=== PATIENT | female | born 1955 | race Caucasian/White ===

== ENCOUNTER → 2019-12-07 15:24 | Outpatient (CLI) | payer BC, SELFPAY ==
--- NOTE | ~2019-12-07 | MR_ITS ---
EXAMINATION: MR brain/brain stem wo/w con DATE: 12/07/2019 16:52 INDICATION: Tinnitus. Dysphagia. Decreased smell. TECHNIQUE: Magnetic resonance imaging (MRI) of the brain and brainstem was performed without and with 19 mL MultiHance intravenous contrast. Sequences included sagittal and axial T1-weighted FSE, axial diffusion-weighted FS EPI, axial T2*-weighted GRE, axial T2-weighted FLAIR Propeller, and axial T2-we ighted Propeller. Postcontrast sequences included axial, sagittal, and coronal T1-weighted FSE. Appar ent diffusion coefficient (ADC) maps were created. COMPARISON: None. FINDINGS: There is no intracranial hemorrhage, acute infarction, or abnormal intracranial mass lesion . The ventricles are normal in size. There is mucosal thickening in the paranasal sinuses, worst in t he anterior ethmoid sinuses and right frontal sinus. There is dependent fluid in left maxillary sinus . The orbits are normal. The mastoid air cells are normal. IMPRESSION: 1. Normal brain. Reviewed, dictated and finalized at location A. [employer]ING PROJECT MANAGER IMPRESSION: 1. Normal brain.
[2019-12-07 16:20] LABS: Blood Urea Nitrogen 24 mg/dL (8-26); Estimated Glomerular Filt Rate 45
== END ==
PROVIDERS: PCP Family Medicine
DX: R13.10 Dysphagia, unspecified (principal); G62.9 Polyneuropathy, unspecified
CPT/HCPCS: 70553; A9577